=== PATIENT | male | born 2000 | race African-American/Black ===

== ENCOUNTER 2024-05-28 21:29 | Emergency (ER) | payer OTHER ==
[2024-05-28] MEDS ORDERED: Boostrix 0.5 ML (Tdap) VIAL (>/=7 yrs of age) ONE (23:04)
[2024-05-28] MEDS ORDERED: Lidocaine 1% PF 5 ML VIAL ONE (23:18)
== END 2024-05-28 23:55 | disposition home or self-care (01) ==
LOC: ERS 21:29
DX: S01.21XA Laceration without foreign body of nose, initial encounter (principal); V49.9XXA Car occupant (driver) (passenger) injured in unspecified traffic accident, initial encounter; Z23 Encounter for immunization
CPT/HCPCS: 12011; 90471; 90715